=== PATIENT | female | born 1940 | race Hispanic/Latino ===

== ENCOUNTER → 2017-05-13 | Outpatient (CLI) | payer OTHER | END | disposition home or self-care (01) | LOC: OIH 15:44 | PROVIDERS: ATTEND Family Medicine | DX: M25.572 Pain in left ankle and joints of left foot (principal) | CPT/HCPCS: 73630 ==

== ENCOUNTER → 2018-03-21 | Outpatient (CLI) | payer OTHER | END | disposition home or self-care (01) | LOC: OIH 12:51 | PROVIDERS: ATTEND Family Medicine | DX: M47.896 Other spondylosis, lumbar region (principal) | CPT/HCPCS: 72100 ==

== ENCOUNTER 2018-10-05 08:38 | Emergency (ER) | payer OTHER ==
[2018-10-05 09:19] LABS: BASOPHILS % (AUTO) 0.4 % (0.0-5.0); EOSINOPHILS % (AUTO) 0.1 % (0.0-8.0); LYMPHOCYTES % (AUTO) 12.1 % (21.0-51.0); MEAN CORPUSCULAR HEMOGLOBIN 29.7 pg (27.0-33.0); MEAN CORPUSCULAR HGB CONC 33.9 g/dL (32.0-36.0); MEAN CORPUSCULAR VOLUME 87.4 fL (79-99); MONOCYTES % (AUTO) 5.6 % (3.0-13.0); NEUTROPHILS % (AUTO) 81.8 % (40.0-77.0); PLATELET COUNT (AUTO) 316 K/uL (130-400); RED CELL DISTRIBUTION WIDTH 14.3 % (11.0-15.5)
[2018-10-05 09:26] LABS: POTASSIUM 3.8 mmol/L (3.5-5.1)
[2018-10-05 09:28] LABS: INR 0.97 (0.85-1.15); PARTIAL THROMBOPLASTIN TIME 23.8 SEC (26.3-35.5); PROTHROMBIN TIME 10.2 SEC (9.6-11.6)
[2018-10-05 09:32] LABS: ALBUMIN 3.6 g/dL (3.5-5.0); BILIRUBIN,TOTAL 0.3 mg/dL (0.2-1.0); TOTAL PROTEIN, SERUM 7.4 g/dL (6.0-8.3)
[2018-10-05 10:54] LABS: AMPHET/METH SCREEN,URINE NEGATIVE (NEGATIVE); APPEARANCE,URINE Clear (CLEAR); BARBITURATE SCREEN, URINE NEGATIVE (NEGATIVE); BENZODIAZEPINES SCREEN,URINE NEGATIVE (NEGATIVE); BILIRUBIN,URINE Negative (NEGATIVE); CANNABINOID SCREEN,URINE NEGATIVE (NEGATIVE); COCAINE SCREEN,URINE NEGATIVE (NEGATIVE); COLOR,URINE Yellow (YELLOW); GLUCOSE, URINE (UA) 250 mg/dL (NEGATIVE); KETONES,URINE Negative (NEGATIVE); LEUKOCYTE ESTERASE ,URINE Trace (NEGATIVE); NITRATE,URINE Negative (NEGATIVE); OCCULT BLOOD,URINE Negative (NEGATIVE); OPIATE SCREEN,URINE NEGATIVE (NEGATIVE); PH,URINE 6.5 (5.0-8.0); PHENCYCLIDINE SCREEN,URINE NEGATIVE (NEGATIVE); PROTEIN,URINE Negative (NEGATIVE)
[2018-10-05 10:56] LABS: BACTERIA,URINE Rare /HPF (None Seen); RBC,URINE 0-1 /HPF (0-1); SQUAMOUS EPITHELIAL CELL,UR Rare /HPF (0-2); WBC,URINE 0-1 /HPF (0-1)
[2018-10-05] MEDS ORDERED: DEXAMETHASONE SOD PHOSPHATE 10MG/ML 1ML VIAL ONE (12:14)
[2018-10-05] MEDS ORDERED: LIDOCAINE 5% TOPICAL PATCH TP ONE (12:14)
== END 2018-10-05 12:34 | disposition home or self-care (01) ==
LOC: EDH 08:38
DX: R41.82 Altered mental status, unspecified (principal); M54.32 Sciatica, left side; I10 Essential (primary) hypertension; E78.5 Hyperlipidemia, unspecified; Z88.1 Allergy status to other antibiotic agents; Z90.49 Acquired absence of other specified parts of digestive tract; Z98.890 Other specified postprocedural states; Z79.899 Other long term (current) drug therapy; Z79.4 Long term (current) use of insulin
CPT/HCPCS: 36415; 70450; 71045; 80053; 80162; 80305; 81001; 85025; 85610; 85730; 93005; 96374; 99285; J1100

== ENCOUNTER → 2018-10-06 | Outpatient (CLI) | payer OTHER | END | disposition home or self-care (01) | LOC: OIH 10:50 | PROVIDERS: ATTEND Family Medicine | DX: M25.552 Pain in left hip (principal); M54.5 Low back pain | CPT/HCPCS: 73502 ==

== ENCOUNTER → 2018-10-13 | Outpatient (CLI) | payer OTHER | END | disposition home or self-care (01) | LOC: OIH 10:01 | PROVIDERS: ATTEND Family Medicine | DX: M51.36 Other intervertebral disc degeneration, lumbar region (principal); I70.90 Unspecified atherosclerosis; M25.78 Osteophyte, vertebrae; M48.07 Spinal stenosis, lumbosacral region | CPT/HCPCS: 72100 ==

== ENCOUNTER → 2018-10-25 | Outpatient (CLI) | payer OTHER | END | disposition home or self-care (01) | LOC: RAH 13:46 | PROVIDERS: ATTEND Family Medicine | DX: M51.26 Other intervertebral disc displacement, lumbar region (principal); M48.061 Spinal stenosis, lumbar region without neurogenic claudication; M47.816 Spondylosis without myelopathy or radiculopathy, lumbar region; M54.42 Lumbago with sciatica, left side | CPT/HCPCS: 72148 ==

== ENCOUNTER 2018-12-05 07:36 | Day surgery (SDC) | payer OTHER ==
[~2018-12-05] VITALS: Ht 154.9 cm; Wt 78.5 kg
[2018-12-05 10:13] VITALS: BP 130/51
[2018-12-05] MEDS ORDERED: LEVO75 PO (10:29)
[2018-12-05] MEDS ORDERED: BACL10TA PO (10:29)
[2018-12-05] MEDS ORDERED: METO50TA18 PO (10:29)
[2018-12-05] MEDS ORDERED: HYDR-4060 PO (10:29)
[2018-12-05] MEDS ORDERED: LOSA100T58 PO (10:29)
[2018-12-05] MEDS ORDERED: HYDR12.54 PO (10:29)
[2018-12-05] MEDS ORDERED: FENO145T37 PO (10:29)
[2018-12-05] MEDS ORDERED: CETI10TA57 PO (10:29)
[2018-12-05] MEDS ORDERED: INS7030 SQ (10:29)
[2018-12-05] MEDS ORDERED: SODIUM CHLORIDE 0.9% 1000ML 1,000 ML IV ONE (10:58)
[2018-12-05] MEDS ORDERED: PROPOFOL 10 MG/ML 20ML VIAL IV ONE (11:37)
[2018-12-05 11:57] VITALS: BP 135/68
[2018-12-05 12:02] VITALS: BP 114/63
[2018-12-05 12:10] VITALS: BP 101/64
[2018-12-05 12:15] VITALS: BP 128/75
[2018-12-05 12:20] VITALS: BP 139/67
== END 2018-12-05 12:35 | disposition home or self-care (01) ==
LOC: DAH 07:36 → ENDO 07:36
PROVIDERS: ATTEND Internal Medicine
DX: K57.30 Diverticulosis of large intestine without perforation or abscess without bleeding (principal); K29.40 Chronic atrophic gastritis without bleeding; K64.0 First degree hemorrhoids; K31.89 Other diseases of stomach and duodenum; K31.0 Acute dilatation of stomach; G47.33 Obstructive sleep apnea (adult) (pediatric); I10 Essential (primary) hypertension; E11.9 Type 2 diabetes mellitus without complications; E03.9 Hypothyroidism, unspecified; Z90.49 Acquired absence of other specified parts of digestive tract; Z79.82 Long term (current) use of aspirin; Z79.899 Other long term (current) drug therapy; Z79.4 Long term (current) use of insulin; Z90.89 Acquired absence of other organs
CPT/HCPCS: 43239; 45378; 82948 ×2; 88305; A4606; J2704; J7030

== ENCOUNTER → 2020-03-03 | Outpatient (CLI) | payer OTHER ==
[~2020-03-03] MED LIST: BACL10TA PO; CETI10TA57 PO; FENO145T26 PO; HYDR-4060 PO; HYDR12.54 PO; INS7030 SQ; LEVO75 PO; LOSA100T58 PO; METO50TA18 PO
== END | disposition home or self-care (01) ==
LOC: RAH 11:00
PROVIDERS: ATTEND Internal Medicine Cardiovascular Disease
DX: Z13.6 Encounter for screening for cardiovascular disorders (principal); I25.10 Atherosclerotic heart disease of native coronary artery without angina pectoris
CPT/HCPCS: 75571

== ENCOUNTER 2020-06-25 09:57 | Inpatient (IN) | payer OTHER ==
[~2020-06-25] VITALS: Ht 157.5 cm; Wt 87.1 kg
[2020-06-25 10:38] LABS: BASOPHILS % (AUTO) 0.4 % (0.0-5.0); EOSINOPHILS % (AUTO) 0.5 % (0.0-8.0); HEMATOCRIT 38.7 % (36-48); LYMPHOCYTES % (AUTO) 19.7 % (21.0-51.0); MEAN CORPUSCULAR HEMOGLOBIN 29.2 pg (27.0-33.0); MEAN CORPUSCULAR HGB CONC 32.3 g/dL (32.0-36.0); MEAN CORPUSCULAR VOLUME 90.4 fL (79-99); NEUTROPHILS % (AUTO) 72.1 % (40.0-77.0); PLATELET COUNT (AUTO) 240 K/uL (130-400); RED BLOOD CELL COUNT(AUTO) 4.28 MIL/uL (4.00-5.50); RED CELL DISTRIBUTION WIDTH 13.7 % (11.0-15.5); WHITE BLOOD COUNT (AUTO) 7.9 K/uL (4.8-10.8)
[2020-06-25 10:51] LABS: CREATININE 1.1 mg/dL (0.5-1.5); POTASSIUM 4.3 mmol/L (3.5-5.1)
[2020-06-25 10:56] LABS: ALBUMIN 3.5 g/dL (3.5-5.0); BILIRUBIN,TOTAL 0.7 mg/dL (0.2-1.0); TOTAL PROTEIN, SERUM 7.4 g/dL (6.0-8.3)
[2020-06-25 11:00] LABS: INR 0.99 (0.85-1.15); PROTHROMBIN TIME 10.8 SEC (9.6-11.6)
[2020-06-25 11:01] LABS: PARTIAL THROMBOPLASTIN TIME 22.8 SEC (26.3-35.5)
[2020-06-25 11:08] LABS: B-TYPE NATRIURETIC PEPTIDE 754 pg/mL (0-100)
[2020-06-25 11:49] LABS: APPEARANCE,URINE Clear (CLEAR); BILIRUBIN,URINE Negative (NEGATIVE); COLOR,URINE Yellow (YELLOW); GLUCOSE, URINE (UA) Negative (NEGATIVE); KETONES,URINE Negative (NEGATIVE); LEUKOCYTE ESTERASE ,URINE Negative (NEGATIVE); NITRATE,URINE Negative (NEGATIVE); OCCULT BLOOD,URINE Negative (NEGATIVE); PROTEIN,URINE POS 2+ mg/dL (NEGATIVE); UROBILINOGEN,URINE 0.2 mg/dL (0.2-1.0)
[2020-06-25 12:08] LABS: BACTERIA,URINE Rare /HPF (None Seen); RBC,URINE None Seen /HPF (0-1); SQUAMOUS EPITHELIAL CELL,UR 0-2 /HPF (0-2); WBC,URINE 0-1 /HPF (0-1)
[2020-06-25] MEDS ORDERED: FUROSEMIDE 20MG VIAL IV SCH (13:00)
[2020-06-25] MEDS ORDERED: GLUCAGON 1MG KIT 1 MG ML IM PRN (14:45)
[2020-06-25] MEDS ORDERED: DEXTROSE 50%-WATER 50 ML DISP.SYRIN IV PRN (14:45)
[2020-06-25] MEDS ORDERED: ALBUTEROL INHALER 90MCG/INH IH PRN (15:00)
[2020-06-25] MEDS ORDERED: ONDANSETRON 4MG INJ IVP PRN (15:00)
[2020-06-25] MEDS ORDERED: ACETAMINOPHEN 650 MG SUPPOSITORY RC PRN (15:00)
[2020-06-25] MEDS: ENALAPRILAT DIHYDRATE 1.25MG/ML 1ML VIAL IV SCH ×2 (15:00→21:00)
[2020-06-25] MEDS ORDERED: ENALAPRILAT DIHYDRATE 1.25MG/ML 1ML VIAL IV ONE ×2 (15:14→20:37)
[2020-06-25] MEDS ORDERED: ACET1TAB25 PO (16:10)
[2020-06-25] MEDS ORDERED: AMLO-257 PO (16:13)
[2020-06-25] MEDS ORDERED: OMEP-420 PO (16:14)
[2020-06-25] MEDS ORDERED: CARB30DR OP (16:15)
[2020-06-25] MEDS ORDERED: CARBOXYMETHYLCELLULOSE SODIUM OP PRN ×2 (17:15)
[2020-06-25] MEDS ORDERED: ACETAMINOPHEN WITH CODEINE 1 TAB TAB PO PRN (17:15)
[2020-06-25 18:37] LABS: CREATINE KINASE, TOTAL 73 U/L (21-232); MYOGLOBIN 89 ng/mL (10-92); TROPONIN I < 0.04 ng/mL (0.00-0.06)
[2020-06-25] MEDS ORDERED: LIDOCAINE HCL-MPF 1% 2ML VIAL IV PRN (20:30)
[2020-06-25] MEDS ORDERED: MAGNESIUM 2GM PREMIX 50ML 50 ML IV SCH (20:30)
[2020-06-25] MEDS ORDERED: KCL 20 MEQ ERTAB PO PRN (20:30)
[2020-06-25] MEDS ORDERED: POTASSIUM CHLORIDE 20MEQ/100ML 100 ML IV PRN (20:30)
[2020-06-25] MEDS ORDERED: POTASSIUM CHLORIDE 10% ELIXIR 20 MEQ/15 ML UDCUP PO PRN (20:30)
[2020-06-25] MEDS ORDERED: FUROSEMIDE 20MG VIAL ONE (20:37)
[2020-06-25] MEDS: FUROSEMIDE 20MG VIAL IV SCH (21:00)
[2020-06-25 21:45] LABS: CREATINE KINASE, TOTAL 94 U/L (21-232); MYOGLOBIN 100 ng/mL (10-92); TROPONIN I < 0.04 ng/mL (0.00-0.06)
[2020-06-25 22:32] VITALS: BP 183/75
[2020-06-25 22:45] VITALS: BP 176/77
[2020-06-25 23:00] VITALS: BP 175/77
[2020-06-25 23:15] VITALS: BP 182/70
[2020-06-25 23:32] VITALS: BP 186/73
[2020-06-25 23:45] VITALS: BP 181/59
[2020-06-26] VITALS (23 sets, daily range): BP systolic 104–209; BP diastolic 48–81
[2020-06-26 03:36] LABS: BASOPHILS % (AUTO) 0.3 % (0.0-5.0); EOSINOPHILS % (AUTO) 0.5 % (0.0-8.0); HEMATOCRIT 38.5 % (36-48); LYMPHOCYTES % (AUTO) 22.9 % (21.0-51.0); MEAN CORPUSCULAR HEMOGLOBIN 29.6 pg (27.0-33.0); MEAN CORPUSCULAR HGB CONC 33.2 g/dL (32.0-36.0); MEAN CORPUSCULAR VOLUME 88.9 fL (79-99); MONOCYTES % (AUTO) 8.7 % (3.0-13.0); NEUTROPHILS % (AUTO) 67.3 % (40.0-77.0); PLATELET COUNT (AUTO) 233 K/uL (130-400); RED BLOOD CELL COUNT(AUTO) 4.33 MIL/uL (4.00-5.50); RED CELL DISTRIBUTION WIDTH 13.7 % (11.0-15.5); WHITE BLOOD COUNT (AUTO) 6.6 K/uL (4.8-10.8)
[2020-06-26 03:49] LABS: POTASSIUM 3.8 mmol/L (3.5-5.1)
[2020-06-26] MEDS ORDERED: ENALAPRILAT DIHYDRATE 1.25MG/ML 1ML VIAL IV ONE (04:10)
[2020-06-26] MEDS: ENALAPRILAT DIHYDRATE 1.25MG/ML 1ML VIAL IV SCH ×3 (04:17→15:00)
[2020-06-26] MEDS ORDERED: LEVOTHYROXINE 75 MCG TABLET PO SCH (06:30)
[2020-06-26] MEDS: LEVOTHYROXINE 75 MCG TABLET PO SCH (08:14)
[2020-06-26] MEDS ORDERED: VANCOMYCIN 1G/250ML KIT 250 ML IV PRN (08:15)
[2020-06-26] MEDS ORDERED: DiphenhydrAMINE HCL 50 MG/ML VIAL IV PRN (08:15)
[2020-06-26] MEDS ORDERED: 0.9% NACL 500ML IV.SOLN 500 ML IV SCH (08:15)
[2020-06-26] MEDS: LOSARTAN 100 MG TABLET PO SCH (09:00)
[2020-06-26] MEDS ORDERED: LOSARTAN 50 MG TABLET PO SCH (09:00)
[2020-06-26 09:07] LABS: HEMATOCRIT 38.7 % (36-48); MEAN CORPUSCULAR HEMOGLOBIN 30.2 pg (27.0-33.0); MEAN CORPUSCULAR HGB CONC 33.6 g/dL (32.0-36.0); MEAN CORPUSCULAR VOLUME 89.8 fL (79-99); RED BLOOD CELL COUNT(AUTO) 4.31 MIL/uL (4.00-5.50); RED CELL DISTRIBUTION WIDTH 13.6 % (11.0-15.5); WHITE BLOOD COUNT (AUTO) 6.9 K/uL (4.8-10.8)
[2020-06-26] MEDS: AMLODIPINE 5 MG TAB PO SCH (09:13)
[2020-06-26] MEDS: FUROSEMIDE 20MG VIAL IV SCH ×2 (09:13→21:00)
[2020-06-26] MEDS: FAMOTIDINE 20MG VIAL IV SCH (09:13)
[2020-06-26 09:17] LABS: CREATININE 0.9 mg/dL (0.5-1.5); POTASSIUM 4.5 mmol/L (3.5-5.1)
[2020-06-26 09:19] LABS: INR 1.04 (0.85-1.15); PROTHROMBIN TIME 11.3 SEC (9.6-11.6)
[2020-06-26 09:20] LABS: PARTIAL THROMBOPLASTIN TIME 21.7 SEC (26.3-35.5)
[2020-06-26] MEDS ORDERED: ISOSORBIDE DINITRATE 10MG TAB PO SCH (14:45)
[2020-06-26] MEDS: HYDROXYZINE HCL 10MG/5ML SYRUP 5ML BOTTLE PO PRN ×2 (15:12→21:20)
[2020-06-26] MEDS ORDERED: DOPAMINE 800MG/D5 250ML 250 ML IV PRN (15:30)
[2020-06-26] MEDS ORDERED: LACTATED RINGERS 1000ML 1,000 ML IV ONE (17:11)
[2020-06-26] MEDS: INSULIN HUMULIN R 100 UNIT/ML 3ML SQ SCH (21:23)
[2020-06-26] MEDS: ENALAPRILAT DIHYDRATE 1.25 MG/ML 2ML VIAL IVP SCH (21:57)
[2020-06-27] VITALS (11 sets, daily range): BP systolic 109–183; BP diastolic 46–95
[2020-06-27] MEDS: ENALAPRILAT DIHYDRATE 1.25 MG/ML 2ML VIAL IVP SCH (03:00)
[2020-06-27 04:15] LABS: INR 1.03 (0.85-1.15); PROTHROMBIN TIME 11.2 SEC (9.6-11.6)
[2020-06-27 04:18] LABS: CREATININE 1.2 mg/dL (0.5-1.5); POTASSIUM 3.6 mmol/L (3.5-5.1)
[2020-06-27] MEDS: LEVOTHYROXINE 75 MCG TABLET PO SCH (06:30)
[2020-06-27] MEDS: INSULIN HUMULIN R 100 UNIT/ML 3ML SQ SCH ×4 (07:30→21:58)
[2020-06-27] MEDS ORDERED: BUPIVACAINE/PF 0.25% 30ML VIAL IJ ONE (07:35)
[2020-06-27] MEDS ORDERED: VANCOMYCIN 1G/250ML KIT 500 ML IV ONE (07:36)
[2020-06-27] MEDS ORDERED: LIDOCAINE HCL 1% MDV 50ML VIAL ONE (07:36)
[2020-06-27] MEDS ORDERED: MIDAZOLAM HCL 1 MG/ML 2ML VIAL ONE (07:36)
[2020-06-27] MEDS ORDERED: FENTANYL CITRATE PF 50 MCG/1 ML 2ML VIAL ONE (07:36)
[2020-06-27] MEDS ORDERED: OCTYL 2-CYANOACRYLATE 1 EACH TP ONE ×3 (08:46→09:18)
[2020-06-27] MEDS ORDERED: ACETAMINOPHEN WITH CODEINE 1 TAB TAB PO PRN ×2 (09:30)
[2020-06-27] MEDS ORDERED: ONDANSETRON 4MG INJ IV PRN (09:30)
[2020-06-27] MEDS ORDERED: TEMAZEPAM 30 MG CAP PO PRN (09:30)
[2020-06-27] MEDS: ISOSORBIDE DINITRATE 10MG TAB PO SCH ×3 (11:47→21:02)
[2020-06-27] MEDS: AMLODIPINE 5 MG TAB PO SCH (11:48)
[2020-06-27] MEDS: FAMOTIDINE 20MG VIAL IV SCH (11:48)
[2020-06-27] MEDS: LOSARTAN 100 MG TABLET PO SCH (11:48)
[2020-06-27] MEDS: VANCOMYCIN 1G/250ML KIT 250 ML IV SCH ×2 (11:49→23:31)
[2020-06-27] MEDS: METOPROLOL TARTRATE 50 MG TAB PO SCH ×2 (11:52→21:00)
[2020-06-27] MEDS: HYDROXYZINE HCL 10MG/5ML SYRUP 5ML BOTTLE PO PRN (21:02)
[2020-06-28 00:08] VITALS: BP 133/59
[2020-06-28 04:01] VITALS: BP 140/67
[2020-06-28] MEDS: INSULIN HUMULIN R 100 UNIT/ML 3ML SQ SCH ×3 (06:00→17:00)
[2020-06-28] MEDS: LEVOTHYROXINE 75 MCG TABLET PO SCH (06:00)
[2020-06-28 06:11] LABS: BASOPHILS % (AUTO) 0.3 % (0.0-5.0); EOSINOPHILS % (AUTO) 1.1 % (0.0-8.0); HEMATOCRIT 36.6 % (36-48); LYMPHOCYTES % (AUTO) 23.7 % (21.0-51.0); MEAN CORPUSCULAR HEMOGLOBIN 29.4 pg (27.0-33.0); MEAN CORPUSCULAR HGB CONC 33.1 g/dL (32.0-36.0); MEAN CORPUSCULAR VOLUME 88.8 fL (79-99); MONOCYTES % (AUTO) 8.6 % (3.0-13.0); NEUTROPHILS % (AUTO) 66.1 % (40.0-77.0); PLATELET COUNT (AUTO) 248 K/uL (130-400); RED BLOOD CELL COUNT(AUTO) 4.12 MIL/uL (4.00-5.50); RED CELL DISTRIBUTION WIDTH 13.6 % (11.0-15.5); WHITE BLOOD COUNT (AUTO) 9.4 K/uL (4.8-10.8)
[2020-06-28 06:30] LABS: ALBUMIN 3.2 g/dL (3.5-5.0); BILIRUBIN,TOTAL 0.7 mg/dL (0.2-1.0); TOTAL PROTEIN, SERUM 6.8 g/dL (6.0-8.3)
[2020-06-28 08:00] VITALS: BP 146/75
[2020-06-28] MEDS: METOPROLOL TARTRATE 50 MG TAB PO SCH (09:39)
[2020-06-28] MEDS: LOSARTAN 100 MG TABLET PO SCH (09:39)
[2020-06-28] MEDS: AMLODIPINE 5 MG TAB PO SCH (09:39)
[2020-06-28] MEDS: ISOSORBIDE DINITRATE 10MG TAB PO SCH ×2 (09:40→15:08)
[2020-06-28] MEDS: FAMOTIDINE 20MG VIAL IV SCH (09:40)
[2020-06-28 11:36] VITALS: BP 132/69
[2020-06-28] MEDS ORDERED: REGADENOSON 0.4 MG/5 ML PF SYG IVP SCH (11:45)
[2020-06-28] MEDS: HYDROXYZINE HCL 10MG/5ML SYRUP 5ML BOTTLE PO PRN (15:08)
[2020-06-28 16:00] VITALS: BP 138/54
[2020-06-28] MEDS ORDERED: HYDR25CA PO (16:49)
== END 2020-06-28 18:28 | disposition home or self-care (01) | DRG 242 ==
LOC: EDH 09:57 → EDHIP 12:54 → UNDOADMIN 12:54 → EDHIP 14:43 → 2CH 21:36 → 4DH 06-27 10:13
PROVIDERS: ADMIT Internal Medicine Critical Care Medicine; ATTEND Internal Medicine Critical Care Medicine
PROC: 0JH606Z Insertion of Pacemaker, Dual Chamber into Chest Subcutaneous Tissue and Fascia, Open Approach (ICD-10-PCS; principal; 2020-06-25)
PROC: 02H63JZ Insertion of Pacemaker Lead into Right Atrium, Percutaneous Approach (ICD-10-PCS; 2020-06-25)
PROC: 02HK3JZ Insertion of Pacemaker Lead into Right Ventricle, Percutaneous Approach (ICD-10-PCS; 2020-06-25)
DX: I44.2 Atrioventricular block, complete (principal); I50.31 Acute diastolic (congestive) heart failure; J81.1 Chronic pulmonary edema; I44.7 Left bundle-branch block, unspecified; I16.0 Hypertensive urgency; E03.9 Hypothyroidism, unspecified; I25.10 Atherosclerotic heart disease of native coronary artery without angina pectoris; E78.5 Hyperlipidemia, unspecified; E11.9 Type 2 diabetes mellitus without complications; E66.9 Obesity, unspecified; Z20.822 Contact with and (suspected) exposure to COVID-19; Z79.4 Long term (current) use of insulin; Z95.0 Presence of cardiac pacemaker; Z79.899 Other long term (current) drug therapy; Z88.2 Allergy status to sulfonamides; Z88.8 Allergy status to other drugs, medicaments and biological substances; Z68.35 Body mass index [BMI] 35.0-35.9, adult; I11.0 Hypertensive heart disease with heart failure
CPT/HCPCS: 33208; 36415; 71045; 71046; 74176; 78452; 80048; 80053; 81001; 82550; 82948; 83735; 83874; 83880; 84443; 84484; 85025; 85027; 85378; 85610; 85730; 87426; 93005; 93017; 93306; 93356; 96374; 99156; 99157; A9500; C1785; G0378; J1200; J1815; J1940; J2250; J2785; J3010; J3370; J3490; J7120; U0003

== ENCOUNTER → 2022-04-06 | Outpatient (CLI) | payer OTHER ==
[~2022-04-06] MED LIST changes: +ACET-2079 PO; +AMLO-257 PO; -BACL10TA PO; +CARB30DR OP; -CETI10TA57 PO; -FENO145T26 PO; -HYDR-4060 PO; -HYDR12.54 PO; +HYDR25CA PO; +IOHEXOL 350 MG/ML 100ML INFUS..BTL IV ONE; +OMEP-420 PO
== END | disposition home or self-care (01) ==
LOC: RAH 09:31
PROVIDERS: ATTEND Internal Medicine Cardiovascular Disease
DX: M47.815 Spondylosis without myelopathy or radiculopathy, thoracolumbar region (principal); R06.02 Shortness of breath
CPT/HCPCS: 75574; Q9967

== ENCOUNTER 2022-10-07 17:28 | Emergency (ER) | payer OTHER ==
[~2022-10-07] VITALS: Ht 154.9 cm; Wt 72.6 kg
[~2022-10-07 17:28] MED LIST changes: -IOHEXOL 350 MG/ML 100ML INFUS..BTL IV ONE; -LOSA100T58 PO; +LOSA100T59 PO
[2022-10-07 18:13] LABS: BASOPHILS % (AUTO) 0.4 % (0.0-5.0); EOSINOPHILS % (AUTO) 0.7 % (0.0-8.0); HEMATOCRIT 39.6 % (36-48); LYMPHOCYTES % (AUTO) 11.5 % (21.0-51.0); MEAN CORPUSCULAR HEMOGLOBIN 27.9 pg (27.0-33.0); MEAN CORPUSCULAR HGB CONC 32.1 g/dL (32.0-36.0); MONOCYTES % (AUTO) 3.8 % (3.0-13.0); NEUTROPHILS % (AUTO) 83.2 % (40.0-77.0); PLATELET COUNT (AUTO) 232 K/uL (130-400); RED BLOOD CELL COUNT(AUTO) 4.55 MIL/uL (4.00-5.50); RED CELL DISTRIBUTION WIDTH 16.5 % (11.0-15.5); WHITE BLOOD COUNT (AUTO) 8.4 K/uL (4.8-10.8)
[2022-10-07 18:30] LABS: CARBON DIOXIDE 29 mmol/L (21-32); CHLORIDE 104 mmol/L (101-111); GLOMERULAR FILTR. RATE CALC 56 mL/min (>90); GLUCOSE,RANDOM 184 mg/dL (70-105); POTASSIUM 4.7 mmol/L (3.5-5.1); SODIUM SERUM 139 mmol/L (136-145); UREA NITROGEN, BLOOD 26 mg/dL (7-18)
[2022-10-07 18:34] LABS: ALANINE AMINOTRANSFERASE 18 U/L (12-78); ALBUMIN 3.6 g/dL (3.5-5.0); ASPARTATE AMINOTRANSFERASE 19 U/L (10-37); TOTAL PROTEIN, SERUM 7.4 g/dL (6.0-8.3)
[2022-10-07 18:39] LABS: LIPASE < 50 U/L (114-286)
[2022-10-07] MEDS ORDERED: DIPHENOXYLATE HCL/ATROPINE 2.5/0.025 MG TAB PO ONE (20:00)
[2022-10-07] MEDS ORDERED: ONDANSETRON 4MG INJ IVP ONE (20:00)
[2022-10-07] MEDS ORDERED: ONDA-104 PO (21:06)
[2022-10-07] MEDS ORDERED: DIPH1TAB PO (21:07)
[2022-10-07 21:19] VITALS: BP 110/62
== END 2022-10-07 21:26 | disposition home or self-care (01) ==
LOC: EDH 17:28
DX: A08.4 Viral intestinal infection, unspecified (principal); R11.2 Nausea with vomiting, unspecified; I10 Essential (primary) hypertension; E78.00 Pure hypercholesterolemia, unspecified; E11.9 Type 2 diabetes mellitus without complications; Z88.8 Allergy status to other drugs, medicaments and biological substances; Z79.899 Other long term (current) drug therapy
CPT/HCPCS: 99283; 96374; 80053; 83690; 85025; 36415; J2405